=== PATIENT | female | born 1940 | race Caucasian/White ===

== ENCOUNTER 2019-04-27 17:04 | Inpatient (IN) | payer MEDICARE, OTHER ==
[~2019-04-27] VITALS: Ht 162.6 cm; Wt 47.2 kg
[2019-04-27 19:30] VITALS: BP 154/90
[2019-04-27] MEDS ORDERED: CALCIUM CARBONATE 500 MG TAB.CHEW PO PRN (22:45)
[2019-04-27] MEDS ORDERED: ACETAMINOPHEN 325 MG TABLET. PO PRN (22:45)
[2019-04-27] MEDS ORDERED: METOCLOPRAMIDE HCL 10 MG/2 ML VIAL. IV PRN (22:45)
[2019-04-27] MEDS ORDERED: cefTRIAXone IV Push 1 GM VIAL. IVP ONE (23:45)
[2019-04-27] MEDS ORDERED: ASCO500T3 PO (23:54)
[2019-04-27] MEDS ORDERED: LEVO88TA4 PO (23:54)
[2019-04-27] MEDS ORDERED: FERR325T14 PO (23:54)
[2019-04-27] MEDS ORDERED: TRAZ-118 PO (23:54)
[2019-04-27] MEDS ORDERED: OXYC1TAB15 PO (23:54)
[2019-04-27] MEDS ORDERED: CALC260T6 PO (23:54)
[2019-04-27] MEDS ORDERED: DULO30CA2 PO (23:54)
[2019-04-27] MEDS ORDERED: LORA0.5T PO (23:54)
[2019-04-27] MEDS ORDERED: TRIA1CAP3 PO (23:54)
[2019-04-27] MEDS ORDERED: ATEN25TA PO (23:54)
[2019-04-27] MEDS ORDERED: ASPI325T11 PO (23:54)
[2019-04-27 23:55] VITALS: BP 131/79
[2019-04-28] VITALS (7 sets, daily range): BP systolic 113–192; BP diastolic 67–92
[2019-04-28] MEDS: LORazepam 0.5 MG TABLET PO PRN ×2 (00:06→19:50)
[2019-04-28] MEDS: POTASSIUM CL 20MEQ D5-0.45NACL 1,000 ML IV SCH ×2 (00:07→12:43)
[2019-04-28 03:31] LABS: BASO # 0.1 x10^3/uL (0.0-0.2); BASO % 1 % (0-3); EOS # 0.1 x10^3/uL (0.0-0.7); EOS % 1 % (0-3); HEMATOCRIT 32.9 % (36.0-47.0); HEMOGLOBIN 10.7 g/dL (12.0-15.5); LYMPH # 2.4 x10^3/uL (1.0-4.8); LYMPH % 24 % (24-48); MEAN CORPUSCULAR HEMOGLOBIN 28 pg (25-35); MEAN CORPUSCULAR HGB CONC 33 g/dL (31-37); MEAN CORPUSCULAR VOLUME 86 fL (79-100); MONO # 0.9 x10^3/uL (0.0-1.1); MONO % 9 % (0-9); NEUT # 6.8 x10^3uL (1.8-7.7); NEUT % 66 % (31-73); PLATELET COUNT 277 x10^3/uL (140-400); RED BLOOD COUNT 3.83 x10^6/uL (3.50-5.40); RED CELL DISTRIBUTION WIDTH 26.4 % (11.5-14.5); WHITE BLOOD COUNT 10.3 x10^3/uL (4.0-11.0)
[2019-04-28 03:37] LABS: ALBUMIN 3.2 g/dL (3.4-5.0); ALBUMIN/GLOBULIN RATIO 0.8 (1.0-1.7); CALCIUM 9.4 mg/dL (8.5-10.1); CREATININE 0.8 mg/dL (0.6-1.0); GFR 69.4; POTASSIUM 3.4 mmol/L (3.5-5.1); TOTAL BILIRUBIN 0.4 mg/dL (0.2-1.0); TOTAL PROTEIN 7.1 g/dL (6.4-8.2)
--- NOTE | 2019-04-28 04:02 | NUR ---
Monitor reading pt had HR 180's - RN entered room and did an apical pulse check - HR in the 120's. Pt sleeping soundly during episode.While in room - brief changed - barely wet. Pt very diaphoretic - pt reports has done that for years. Two blankets removed. 2345 dose of Rocephin held as pt had received a dose at [facility] at 1519 on . Pharmacy made aware and dosing time changed. Will continue to monitor pt status closely.
[2019-04-28] MEDS: LEVOTHYROXINE 88 MCG TABLET PO SCH (06:00)
[2019-04-28] MEDS ORDERED: PANTOPRAZOLE IV PUSH 40 MG VIAL. IVP SCH (07:30)
[2019-04-28] MEDS: ATENOLOL 25 MG TABLET. PO SCH (09:00)
[2019-04-28] MEDS: ASCORBIC ACID 500 MG TABLET PO SCH (09:00)
[2019-04-28] MEDS: LACTOBACILLUS RHAMNOSUS GG 1 CAPSULE. PO SCH ×2 (09:00→19:50)
[2019-04-28] MEDS: DULoxetine HCL 30 MG CAPSULE.DR PO SCH (09:00)
--- NOTE | 2019-04-28 09:22 | PDOC2 ---
GI CONSULT Reason For Consult: GI Bleed HPI: HPI: 78 y/o female transferred from [facility] where she was initially admitted through ER at [facility] for confusion w/ medication overdose. RN tells me she "vomited black" yesterday. No recurrent vomiting or concern for bleeding since admission. Per RN, has been confused. She was less confused when I saw her this morning and able to provide some history. Has "all over pain" - says she has neuropathy and fibromyalgia. Also notes some right-sided cramping - unclear when this started. It might be worse with eating but says was eating and drinking normally until yesterday. "I don't eat much." H/o heartburn and remote h/o "ulcer." No dysphagia. No diarrhea or constipation. Unclear when last stooled but it might have looked dark. No weight loss. No previous EGD but does recall having a colonoscopy ~10 years ago. No GB, liver, or pancreas history. Admitting Hgb was 12, then 11.5, and now 10.7. Plt and INR WNL. Normal BUN and Cr. Normal LFTs and lipase. TSH elevated (10). UA +nitrites. Gastric occult was positive. Notes indicate she was taking Tums (she says not helpful for heartburn), ASA, Miralax, iron, oxycodone. Has been NPO on IV PPI. PMH: PMH: per records - osteoporosis, fibromyalgia, GERD, hypothyroidism, scoliosis, A Fib, OA, hemorrhoids, gait disorder, HTN, dementia SOLE RUFFER shunt for obstructive hydrocephalus FH: Family History: No pertinent hx Social History: Smoke: No ALCOHOL: none Drugs: None ROS: GEN: Denies fevers, chills, sweats HEENT: Denies blurred vision, sore throat CV: Denies chest pain RESP: Denies shortness of air, cough GI: Per HPI : Denies hematuria, dysuria ENDO: Denies weight changes NEURO: +confusion MSK: +chronic pain SKIN: Denies jaundice, pruritus Vitals: Vitals: Vital Signs Date Time Temp Pulse Resp B/P (MAP) Pulse Ox O2 Delivery O2 Flow Rate FiO2 04/28/19 08:47 99.4 99 18 134/71 (92) 97 Room Air 99.4 Labs: Labs: Laboratory Tests Test 04/28/19 02:50 White Blood Count 10.3 x10^3/uL (4.0-11.0) Red Blood Count 3.83 x10^6/uL (3.50-5.40) Hemoglobin 10.7 g/dL (12.0-15.5) Hematocrit 32.9 % (36.0-47.0) Mean Corpuscular Volume 86 fL (79-100) Mean Corpuscular Hemoglobin 28 pg (25-35) Mean Corpuscular Hemoglobin Concent 33 g/dL (31-37) Red Cell Distribution Width 26.4 % (11.5-14.5) Platelet Count 277 x10^3/uL (140-400) Neutrophils (%) (Auto) 66 % (31-73) Lymphocytes (%) (Auto) 24 % (24-48) Monocytes (%) (Auto) 9 % (0-9) Eosinophils (%) (Auto) 1 % (0-3) Basophils (%) (Auto) 1 % (0-3) Neutrophils # (Auto) 6.8 x10^3uL (1.8-7.7) Lymphocytes # (Auto) 2.4 x10^3/uL (1.0-4.8) Monocytes # (Auto) 0.9 x10^3/uL (0.0-1.1) Eosinophils # (Auto) 0.1 x10^3/uL (0.0-0.7) Basophils # (Auto) 0.1 x10^3/uL (0.0-0.2) Sodium Level 143 mmol/L (136-145) Potassium Level 3.4 mmol/L (3.5-5.1) Chloride Level 107 mmol/L (98-107) Carbon Dioxide Level 23 mmol/L (21-32) Anion Gap 13 (6-14) Blood Urea Nitrogen 14 mg/dL (7-20) Creatinine 0.8 mg/dL (0.6-1.0) Estimated GFR (Cockcroft-Gault) 69.4 BUN/Creatinine Ratio 18 (6-20) Glucose Level 132 mg/dL (70-99) Lactic Acid Level 1.3 mmol/L (0.4-2.0) Calcium Level 9.4 mg/dL (8.5-10.1) Total Bilirubin 0.4 mg/dL (0.2-1.0) Aspartate Amino Transf (AST/SGOT) 14 U/L (15-37) Alanine Aminotransferase (ALT/SGPT) 15 U/L (14-59) Alkaline Phosphatase 83 U/L (46-116) Total Protein 7.1 g/dL (6.4-8.2) Albumin 3.2 g/dL (3.4-5.0) Albumin/Globulin Ratio 0.8 (1.0-1.7) Lipase 96 U/L (73-393) Allergies: Coded Allergies: Sulfa (Sulfonamide Antibiotics) (Verified Allergy, Unknown, 04/27/19) ciprofloxacin (Verified Allergy, Unknown, 04/27/19) metronidazole (Verified Allergy, Unknown, 04/27/19) nalbuphine (Verified Allergy, Unknown, 04/28/19) ondansetron (Verified Allergy, Unknown, 04/28/19) tiagabine (Verified Allergy, Unknown, 04/28/19) Medications: Current Medications Medications (Trade) Dose Ordered Sig/Brijesh Route PRN Reason Start Time Stop Time Status Last Admin Dose Admin Potassium Chloride/Dextrose/ Sod Cl 1,000 ml @ 75 mls/hr [id number] IV 04/27/19 23:00 04/28/19 00:07 Lorazepam (Ativan) 0.5 mg PRN Q2HR PRN PO ANXIETY / AGITATION 04/27/19 22:45 04/28/19 00:06 Pantoprazole Sodium (PROTONIX VIAL for IV PUSH) 40 mg DAILYAC IVP 04/28/19 07:30 04/28/19 08:33 Imaging: Imaging: CT head 04/26 No acute intracranial process, mildly prominent ventricles. CT C spine No acute fractures CTA chest No PE. Large hiatal hernia. Bilateral pleural-parenchymal scarring. Vertebral compression fractures of indeterminate age. PE: GEN: NAD HEENT: Atraumatic, PERRL LUNGS: CTAB, room air HEART: tachycardic ABD: NABS, S/ND/N - flinched when right abdomen palpated with hand, no issue w/ pressed w/ stethoscope EXTREMITY: No edema SKIN: No rashes, no jaundice NEURO/PSYCH: A & O - says the year in 2019, knows it's either late March or early April, and knows she's at [facility] A/P: A/P: Confusion, medication overdose "Coffee-ground emesis," ?abd pain Anemia - drift in Hgb from 12 to 10.7, normal BUN, ?taking ASA and iron GERD, remote h/o "ulcer" CRC screen - reports previous colonoscopy Chronic pain ?UTI -- Reviewed w/ Dr. Florez - will plan for EGD later today. D/w RN - she will call son for consent. ?issue w/ shunt - neuro consult pending ROBIN-KAY SAXENA April 28, 2019 09:22
--- NOTE | 2019-04-28 12:09 | HP ---
ADMIT DATE: 04/28/2019 HISTORY OF PRESENT ILLNESS: The patient is a 78-year-old female patient, a resident at [facility], who apparently was seen in the Emergency Room of [facility] as she was very lethargic and more confused. The patient reportedly had a double dose of her Cymbalta, trazodone, Ativan, melatonin and Benadryl, after she took all these medications she has been more sedated and confused and was evaluated in the Emergency Room, where she was extensively investigated. She had lab work, which basically showed white cell count was slightly elevated at 10,800. Her chemistry was essentially unremarkable and she did actually very well the first night and then next day, she started having complaining of headache and recurrent bouts of nausea and vomiting. The vomitus was positive for blood. Her CT scan showed that she has fullness of the ventricles. She also has had spiked her temperature and white cell count went up and I was concerned that she might have blockage of her shunt and therefore the patient was transferred to [facility] to consult the neurosurgeon as well as the science analyst. Her CT scan of the head showed that she has right parietal approach intraventricular shunt is seen with its tip in the frontal horn of the left lateral ventricle. No pathology extraaxial on intraaxial fluid collection. 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 No acute intracranial bleed. No focal loss of hui-white differentiation. Orbits are within normal limits. No acute calvarial fracture and visualized sinus and mastoid air cells are clear. Given that she is having headache, recurrent bouts of nausea and vomiting and positive blood in her vomitus, we transferred her for further evaluation and treatment. She also had urinary tract infection for which she was started on ceftriaxone and the urine and blood were sent for culture and sensitivity. PAST MEDICAL HISTORY: Significant for osteoporosis, fibromyalgia, gastroesophageal reflux disease, hypothyroidism, scoliosis, atrial fibrillation, generalized osteoarthritis, and hemorrhoids. PAST SURGICAL HISTORY: Significant for placement of ventriculoperitoneal shunt for what seemed to have obstructive hydrocephalus, although I do not have the details as she moved from [place] and resided at [facility]. ALLERGIES: She is allergic to CIPROFLOXACIN, FLAGYL, GABITRIL, NUBAIN, SULFA AND ZOFRAN. FAMILY HISTORY: Noncontributory. SOCIAL HISTORY: She is , currently residing at [facility]. She does not smoke, drink alcohol or use any recreational drugs. REVIEW OF SYSTEMS: As per history of present illness. MEDICATIONS: She is on following medications: She was transferred from [facility] to continue on following medications: She is on ferrous sulfate 325 mg once a day, atenolol 25 mg once a day, aspirin 325 mg once a day, oxycodone/APAP 5/325 every 6 hours. She is on Cymbalta 30 mg once a day, trazodone 50 mg at bedtime, lorazepam 0.5 mg every 2 hours as needed for anxiety. She is on triamterene/hydrochlorothiazide one tablet daily. She is on calcium carbonate 260 mg 4 times a day, levothyroxine sodium 88 mcg once a day, ascorbic acid 500 mg twice a day. We kept her n.p.o., she should be on IV fluid in the form of D5 half normal with potassium. She is on IV Rocephin as well as Protonix IV because of recurrent bouts of nausea, vomiting and positive blood in her vomitus. When I saw her this morning, she denied any headaches, continued to have some nausea, but no vomiting. Did complain of some epigastric discomfort. The nursing staff stated that she has a black tarry stool this morning. PHYSICAL EXAMINATION: GENERAL: When I examined her, she looked pale, but no jaundice, cyanosis, or thyromegaly. No jugular venous distension. No limb edema. VITAL SIGNS: Her heart rate was 99, blood pressure 134/71, temperature was 99.4, respiratory rate was 18 and oxygen saturation was 97%. HEAD, EYES, NOSE, AND THROAT: Normocephalic, atraumatic. NECK: Supple. HEART: Showed normal first and second heart sounds with no gallop, rub or murmur. CHEST: Clear to auscultation. No crepitation or rhonchi. ABDOMEN: Slightly distended, soft with tenderness mostly in the epigastric area. No guarding or rigidity. No organomegaly. All hernial orifices intact. Bowel sounds normal. NEUROLOGIC: She is confused, demented, but without any obvious lateralizing sign. All her cranial nerves intact. EXTREMITIES: She moves extremities without difficulty, she ambulates. She was mostly bedbound, chair bound; however, she does walk with a walker with assistance. LABORATORY DATA: Her lab work this morning showed her white cell count to be 10,300, hemoglobin 11, hematocrit 33, MCV was 86 and platelet count 277,000. Her chemistry showed a serum sodium 143, potassium 3.4, chloride 107, bicarbonate 23, anion gap of 13, BUN 14, creatinine 0.8, estimated GFR was 69 mL per minute. Her glucose was 132. Lactic acid is 1.3, calcium was 9.4. Total bilirubin, AST, ALT, alkaline phosphatase were normal. Total protein was 7.1, albumin was 3.2. Lipase was 96. IMPRESSION: 1. In summary, this is a 78-year-old female patient who was transferred from [facility] with a complaint of headache and recurrent bouts of nausea and vomiting. Her CT scan of the head showed that her ventricles are somewhat prominent. She has a ventriculoperitoneal shunt for obstructive hydrocephalus. 2. She has had multiple episodes of nausea and vomiting. The vomitus was positive for blood and in fact she had also a black stool this morning here at [facility] for which we consulted the Gastroenterology team. She is n.p.o. She is on IV fluid and also will start her on Protonix. 3. Urinary tract infection for which she is on IV Rocephin. 4. She has multiple Episodes of nonsustained supraventricular tachycardia for which I will consult the instructor warper also. She does have a history of paroxysmal atrial fibrillation, but she is not on anticoagulation. PAU COSTELLO MD DR: BURKE/maxine JOB#: [id number] / [id number]
--- NOTE | 2019-04-28 13:39 | PDOC2 ---
CARDIAC CONSULT DATE OF CONSULT Date of Consult DATE: 04/28/19 TIME: 13:28 REASON FOR CONSULT Reason for Consult: Tachycardia SVT REFERRING PHYSICIAN Referring Physician: Dr. Nixon SOURCE Source: Chart review, Patient HISTORY OF PRESENT ILLNESS HISTORY OF PRESENT ILLNESS This is a 78 yo female who presented to [facility] from [facility] secondary to altered mental status and lethargy secondary to medication overdose. While at [facility], began having headache and nausea/vomiting. Had coffee ground emesis. Was transferred to [facility] for further evaluation and care. HR has been elevated here intermittently, which prompted this consult. Patient denies any palpitations, dizziness, diaphoresis, SOA, or chest pain. Does have history of PAFIB s/p cardioversion years ago. On Atenolol at home for HR control. Has been unable to received due to being NPO. Is having bursts of AFIB with RVR. Recently moved to [facility] from [place], [place]. Has been on ASA for stroke prevention due to multiple falls in the past. Had fall 2 weeks ago at [place]. PAST MEDICAL HISTORY Cardiovascular: AFIB GI: GERD Psych: Anxiety, Depression Musculoskeletal: Osteoarthritis Rheumatologic: Fibromyalgia Renal/: No pertinent hx Endocrine: Hypothyroidism, Osteoporosis PAST SURGICAL HISTORY Past Surgical History: Hysterectomy FAMILY HISTORY Family History: Other (non-contributory ) SOCIAL HISTORY Smoke: No ALCOHOL: none Drugs: None Lives: Care Home CURRENT MEDICATIONS CURRENT MEDICATIONS Current Medications Medications (Trade) Dose Ordered Sig/Brijesh Route PRN Reason Start Time Stop Time Status Last Admin Dose Admin Potassium Chloride/Dextrose/ Sod Cl 1,000 ml @ 75 mls/hr [id number] IV 04/27/19 23:00 04/28/19 12:43 Lorazepam (Ativan) 0.5 mg PRN Q2HR PRN PO ANXIETY / AGITATION 04/27/19 22:45 04/28/19 00:06 Pantoprazole Sodium (PROTONIX VIAL for IV PUSH) 40 mg DAILYAC IVP 04/28/19 07:30 04/28/19 08:33 ALLERGIES ALLERGIES: Coded Allergies: Sulfa (Sulfonamide Antibiotics) (Verified Allergy, Unknown, 04/27/19) ciprofloxacin (Verified Allergy, Unknown, 04/27/19) metronidazole (Verified Allergy, Unknown, 04/27/19) nalbuphine (Verified Allergy, Unknown, 04/28/19) ondansetron (Verified Allergy, Unknown, 04/28/19) tiagabine (Verified Allergy, Unknown, 04/28/19) ROS Review of System 14 point ROS conducted with pertinent positives noted above in HPI PHYSICAL EXAM General: Alert, Oriented X3, Cooperative, No acute distress HEENT: Atraumatic Lungs: Clear to auscultation, Normal air movement Heart: Regular rate, Normal S1, Normal S2, Other (2/6 systolic murmur ) Abdomen: Soft, No tenderness Extremities: No edema, Normal pulses Skin: No breakdown, No significant lesion Neuro: Normal speech, Sensation intact Psych/Mental Status: Mental status NL, Mood NL MUSCULOSKELETAL: Osteoarthritic changes both hands VITALS VITALS Vital Signs Date Time Temp Pulse Resp B/P (MAP) Pulse Ox O2 Delivery O2 Flow Rate FiO2 04/28/19 11:27 99.1 98 18 124/67 (86) 97 Room Air 99.1 LABS Lab: Laboratory Tests Test 04/28/19 02:50 White Blood Count 10.3 x10^3/uL (4.0-11.0) Red Blood Count 3.83 x10^6/uL (3.50-5.40) Hemoglobin 10.7 g/dL (12.0-15.5) Hematocrit 32.9 % (36.0-47.0) Mean Corpuscular Volume 86 fL (79-100) Mean Corpuscular Hemoglobin 28 pg (25-35) Mean Corpuscular Hemoglobin Concent 33 g/dL (31-37) Red Cell Distribution Width 26.4 % (11.5-14.5) Platelet Count 277 x10^3/uL (140-400) Neutrophils (%) (Auto) 66 % (31-73) Lymphocytes (%) (Auto) 24 % (24-48) Monocytes (%) (Auto) 9 % (0-9) Eosinophils (%) (Auto) 1 % (0-3) Basophils (%) (Auto) 1 % (0-3) Neutrophils # (Auto) 6.8 x10^3uL (1.8-7.7) Lymphocytes # (Auto) 2.4 x10^3/uL (1.0-4.8) Monocytes # (Auto) 0.9 x10^3/uL (0.0-1.1) Eosinophils # (Auto) 0.1 x10^3/uL (0.0-0.7) Basophils # (Auto) 0.1 x10^3/uL (0.0-0.2) Sodium Level 143 mmol/L (136-145) Potassium Level 3.4 mmol/L (3.5-5.1) Chloride Level 107 mmol/L (98-107) Carbon Dioxide Level 23 mmol/L (21-32) Anion Gap 13 (6-14) Blood Urea Nitrogen 14 mg/dL (7-20) Creatinine 0.8 mg/dL (0.6-1.0) Estimated GFR (Cockcroft-Gault) 69.4 BUN/Creatinine Ratio 18 (6-20) Glucose Level 132 mg/dL (70-99) Lactic Acid Level 1.3 mmol/L (0.4-2.0) Calcium Level 9.4 mg/dL (8.5-10.1) Total Bilirubin 0.4 mg/dL (0.2-1.0) Aspartate Amino Transf (AST/SGOT) 14 U/L (15-37) Alanine Aminotransferase (ALT/SGPT) 15 U/L (14-59) Alkaline Phosphatase 83 U/L (46-116) Total Protein 7.1 g/dL (6.4-8.2) Albumin 3.2 g/dL (3.4-5.0) Albumin/Globulin Ratio 0.8 (1.0-1.7) Lipase 96 U/L (73-393) ASSESSMENT/PLAN ASSESSMENT/PLAN 1. Tachyarrhythmia; having burst of AFIB RVR. Atenolol held due to being NPO 2. PAFIB; s/p remote CV. On ASA for stroke prevention due to increased fall risk 3. Hypertension; controlled 4. Coffee ground emesis; GI following. EGD planned for later today 5. Anemia; hgb drop from 12 to 10.7. 6. Chronic pain, fibromyalgia 7. Hypokalemia; replaced 8. Hypothyroidism; TSH > 10; as per PCP Recommendations Atenolol held as patient is NPO Will use metoprolol IV while NPO Echo to assess LV systolic function May hold ASA if GI bleeding noted. Supportive care DEE DEE DAO APRN April 28, 2019 13:39
[2019-04-28] MEDS: METOPROLOL TARTRATE 5 MG/5 ML VIAL. IVP SCH ×3 (14:00→19:51)
--- NOTE | 2019-04-28 14:29 | NUR ---
SW following for discharge planning. ARIE confirmed with Vianey at [facility], pt is LTC resident and plan of return upon dc. Will continue to follow.
[2019-04-28] MEDS: IV RINGERS,LACTATED 1000ML 1,000 ML IV SCH (16:04)
--- NOTE | 2019-04-28 16:10 | CARD ---
MR#: [id number] Date of Study: 04/28/2019 Ordering Physician: DEE DEE DAO, Referring Physician: PAU COSTELLO Tech: Ruby Iqbal RDCS APPROVED REPORT EXAM: Two-dimensional and M-mode echocardiogram with Doppler and color Doppler. Other Information Quality : Good Technically limited study due to due to patient refusal to finish study INDICATION Chest Pain 2D DIMENSIONS RVDd2.6 (2.9-3.5cm)Left Atrium(2D)3.2 (1.6-4.0cm) IVSd0.9 (0.7-1.1cm)Aortic Root(2D)2.8 (2.0-3.7cm) LVDd3.3 (3.9-5.9cm)LVOT Diameter2.0 (1.8-2.4cm) PWd1.0 (0.7-1.1cm)LVDs1.8 (2.5-4.0cm) FS (%) 30.0 %SV33.9 ml LVEF(%)60.0 (>50%) Tricuspid Valve TR P. [id number] TR Peak [id number] LEFT VENTRICLE The left ventricle is normal size. There is normal left ventricular wall thickness. The left ventricu lar systolic function is normal and the ejection fraction is within normal range. The Ejection Fracti on is 60-65%. There is normal LV segmental wall motion. RIGHT VENTRICLE The right ventricle is normal size. The right ventricular systolic function is normal. ATRIA The left atrium size is normal. The right atrium size is normal. AORTIC VALVE The aortic valve is calcified but opens well. Doppler and Color Flow revealed no significant aortic r egurgitation. There is no significant aortic valvular stenosis. MITRAL VALVE The mitral valve is calcified but opens well. There is no evidence of mitral valve prolapse. There is no mitral valve stenosis. Doppler and Color Flow revealed no mitral valve regurgitation noted. TRICUSPID VALVE The tricuspid valve is normal in structure and function. Doppler and Color Flow revealed trace tricus pid regurgitation. The PA pressure was estimated at 28 mmHg. There is no tricuspid valve stenosis. PULMONIC VALVE The pulmonic valve is not well visualized. Doppler and Color Flow revealed no pulmonic valvular regur gitation. There is no pulmonic valvular stenosis. GREAT VESSELS The aortic root is normal in size. The ascending aorta is not well seen. The IVC was not visualized. PERICARDIAL EFFUSION There is no evidence of significant pericardial effusion. Critical Notification Critical Value: No <Conclusion> The left ventricular systolic function is normal and the ejection fraction is within normal range. Th e Ejection Fraction is 60-65%. There is normal LV segmental wall motion. Limited study only Signed by : Enrique Duron, Electronically Approved : 04/28/2019 16:09:55
[2019-04-28] MEDS ORDERED: PROPOFOL 20 ML IV ONE (17:23)
--- NOTE | 2019-04-28 17:47 | PDOC4 ---
PROCEDURE Procedure EGD Indication: hematemesis/acute anemia Meds: per anesthesia Findings: E--Grade A/B reflux distally with friability, tiny M-W tear. G--large HH w/o obstruction, torsion, etc. D--Normal to second portion. Kavita. well. 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 REC: Continue PPI in some fashion OK to have liquids and advance in AM. Thanks. GIANCARLO HENSLEY MD April 28, 2019 17:47
[2019-04-28] MEDS: cefTRIAXone IV Push 1 GM VIAL. IVP SCH (18:33)
--- NOTE | 2019-04-28 19:16 | NUR ---
Patient underwent EGD this afternoon, consent provided by patient's son over the phone witnessed by 2 nurses. The patient came back to the unit at 1810, alert, oriented x2, denies pain. VS upon arrival 117/64 HR 98 RR 18 O2 sat 94% on room air. We'll continue to monitor.
[2019-04-28] MEDS: traZODone 50 MG TABLET. PO SCH (19:50)
[2019-04-29 00:03] VITALS: BP 138/69
[2019-04-29] MEDS: IV RINGERS,LACTATED 1000ML 1,000 ML IV SCH ×2 (02:15→12:15)
[2019-04-29 03:57] VITALS: BP 136/66
[2019-04-29] MEDS: POTASSIUM CL 20MEQ D5-0.45NACL 1,000 ML IV SCH (05:23)
[2019-04-29] MEDS: METOPROLOL TARTRATE 5 MG/5 ML VIAL. IVP SCH ×4 (05:34→23:45)
[2019-04-29] MEDS: LEVOTHYROXINE 88 MCG TABLET PO SCH (05:49)
[2019-04-29 07:00] VITALS: BP 156/70
[2019-04-29] MEDS: PANTOPRAZOLE 40 MG TABLET.DR. PO SCH ×2 (08:42→13:38)
[2019-04-29] MEDS: LACTOBACILLUS RHAMNOSUS GG 1 CAPSULE. PO SCH ×3 (08:42→20:54)
[2019-04-29] MEDS: fentaNYL PF VIAL 100 MCG/2 ML VIAL IV PRN (08:42)
[2019-04-29] MEDS: ASCORBIC ACID 500 MG TABLET PO SCH ×2 (08:43→13:38)
[2019-04-29] MEDS: ATENOLOL 25 MG TABLET. PO SCH ×2 (08:43→09:00)
[2019-04-29] MEDS ORDERED: IOHEXOL 300 MG/ML 100ML VIAL. IV ONE (09:00)
[2019-04-29] MEDS: DULoxetine HCL 30 MG CAPSULE.DR PO SCH (09:00)
[2019-04-29] MEDS ORDERED: IOHEXOL 240 MG/ML 50ML VIAL. PO ONE (09:00)
[2019-04-29] MEDS ORDERED: CONTRAST GIVEN. MC PRN (09:00)
--- NOTE | 2019-04-29 09:11 | NUR ---
IP: Pt is mrsa screen + requiring contact precautions.
--- NOTE | 2019-04-29 10:04 | NUR ---
ARIE faxed updates to [facility]. Will continue to follow.
[2019-04-29 10:11] LABS: BASO % 1 % (0-3); EOS # 0.3 x10^3/uL (0.0-0.7); EOS % 4 % (0-3); HEMATOCRIT 32.7 % (36.0-47.0); HEMOGLOBIN 10.5 g/dL (12.0-15.5); LYMPH # 1.3 x10^3/uL (1.0-4.8); LYMPH % 22 % (24-48); MEAN CORPUSCULAR HEMOGLOBIN 28 pg (25-35); MEAN CORPUSCULAR HGB CONC 32 g/dL (31-37); MEAN CORPUSCULAR VOLUME 87 fL (79-100); MONO # 0.5 x10^3/uL (0.0-1.1); MONO % 8 % (0-9); NEUT # 3.7 x10^3uL (1.8-7.7); NEUT % 65 % (31-73); PLATELET COUNT 240 x10^3/uL (140-400); RED BLOOD COUNT 3.75 x10^6/uL (3.50-5.40); RED CELL DISTRIBUTION WIDTH 25.5 % (11.5-14.5); WHITE BLOOD COUNT 5.7 x10^3/uL (4.0-11.0)
[2019-04-29 10:12] LABS: POTASSIUM 3.5 mmol/L (3.5-5.1)
[2019-04-29 10:19] LABS: ALBUMIN/GLOBULIN RATIO 0.8 (1.0-1.7); TOTAL BILIRUBIN 0.3 mg/dL (0.2-1.0); TOTAL PROTEIN 6.6 g/dL (6.4-8.2)
[2019-04-29 10:21] LABS: CREATININE 0.6 mg/dL (0.6-1.0); GFR 96.7
--- NOTE | 2019-04-29 11:32 | RAD ---
CT of the abdomen and pelvis with contrast, 04/29/2019: HISTORY: Abdominal pain Multidetector CT imaging was performed following oral and IV administration of contrast. A FIELD ATTENDANT shunt tube extends into the upper abdomen. Its tip lies adjacent to the gallbladder. No dense gallstones or gallbladder wall thickening is evident. No hepatic abnormality is seen. The pancreas is unremarkable. The spleen is of normal size. No renal abnormality is detected. There is moderate aortic calcific plaquing without evidence of aneurysm. Artifacts arising from a left hip prosthesis degrade image quality in the lower pelvis. No abdominal or pelvic adenopathy is seen. The uterus is surgically absent. The bowel loops are not dilated. A large hiatal hernia is present. No free air or significant free fluid is identified in the abdomen or pelvis. Several old rib fractures are present on the lower left. There are vertebral compression fractures at L1 and L2, of indeterminate ages. There is mild retropulsion of the posterior superior corner of the L1 vertebral body into the anterior aspect of the spinal canal. There is a small fat-containing midline ventral hernia located just superior to the level the umbilicus. IMPRESSION: 1. A FIELD ATTENDANT shunt tube is identified with its inferior tip lying adjacent to the gallbladder. 2. Small fat-containing ventral hernia. 3.. Large hiatal hernia. 4. L1 and L2 vertebral compression fractures of indeterminate ages. PQRS Compliance Statement: One or more of the following individualized dose reduction techniques were utilized for this examination: 1. Automated exposure control 2. Adjustment of the mA and/or kV according to patient size 3. Use of iterative reconstruction technique Electronically signed by: Morgan Hernandez MD (04/29/2019 11:29 AM) [facility]
--- NOTE | 2019-04-29 11:51 | NUR ---
Notified Dr. Nixon of Abdominal/pelvic CT scan results at 1150, order to advance diet received.
[2019-04-29 12:47] LABS: ANISOCYTOSIS MOD; HYPOCHROMIA SLIGHT; PLT ESTIMATE ADEQUATE (ADEQUATE)
--- NOTE | 2019-04-29 13:14 | PDOC ---
Subjective: Subjective: "I vomited all over my neck during the CT scan! No one talks to me!" Wonders if her soup is potato or onion - she thinks she's going to finish it either way. Wants me to stay and talk awhile because "I'm a hard one to figure out." Objective: Objective: Reviewed w/ RN - was c/o right-sided pain earlier and Dr. Nixon ordered a CT - she did NOT vomit during CT. She discussed with her son - sometimes she makes things up. Vital Signs: Vital Signs Date Time Temp Pulse Resp B/P (MAP) Pulse Ox O2 Delivery O2 Flow Rate FiO2 04/29/19 08:43 82 156/70 04/29/19 08:42 19 98 Room Air 04/29/19 07:00 97.9 97.9 04/28/19 17:56 2 Labs: Laboratory Tests Test 04/29/19 06:00 04/29/19 09:25 Free Thyroxine 0.90 ng/dL White Blood Count 5.7 x10^3/uL Red Blood Count 3.75 x10^6/uL Hemoglobin 10.5 g/dL Hematocrit 32.7 % Mean Corpuscular Volume 87 fL Mean Corpuscular Hemoglobin 28 pg Mean Corpuscular Hemoglobin Concent 32 g/dL Red Cell Distribution Width 25.5 % Platelet Count 240 x10^3/uL Neutrophils (%) (Auto) 65 % Lymphocytes (%) (Auto) 22 % Monocytes (%) (Auto) 8 % Eosinophils (%) (Auto) 4 % Basophils (%) (Auto) 1 % Neutrophils # (Auto) 3.7 x10^3uL Lymphocytes # (Auto) 1.3 x10^3/uL Monocytes # (Auto) 0.5 x10^3/uL Eosinophils # (Auto) 0.3 x10^3/uL Basophils # (Auto) 0.0 x10^3/uL Platelet Estimate Adequate Hypochromasia Slight Anisocytosis Mod Sodium Level 142 mmol/L Potassium Level 3.5 mmol/L Chloride Level 108 mmol/L Carbon Dioxide Level 25 mmol/L Anion Gap 9 Blood Urea Nitrogen 6 mg/dL Creatinine 0.6 mg/dL Estimated GFR (Cockcroft-Gault) 96.7 BUN/Creatinine Ratio 10 Glucose Level 118 mg/dL Calcium Level 9.0 mg/dL Magnesium Level 1.8 mg/dL Total Bilirubin 0.3 mg/dL Aspartate Amino Transf (AST/SGOT) 12 U/L Alanine Aminotransferase (ALT/SGPT) 12 U/L Alkaline Phosphatase 74 U/L Lactate Dehydrogenase 134 U/L Total Protein 6.6 g/dL Albumin 3.0 g/dL Albumin/Globulin Ratio 0.8 Lipase 102 U/L Imaging: CT A/P 04/29 IMPRESSION: 1. A POWER BRAKE REBUILDER shunt tube is identified with its inferior tip lying adjacent to the gallbladder. 2. Small fat-containing ventral hernia. 3.. Large hiatal hernia. 4. L1 and L2 vertebral compression fractures of indeterminate ages. EGD 04/28 E--Grade A/B reflux distally with friability, tiny M-W tear. G--large HH w/o obstruction, torsion, etc. D--Normal to second portion. 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 Echo 04/28 <Conclusion> The left ventricular systolic function is normal and the ejection fraction is within normal range. The Ejection Fraction is 60-65%. There is normal LV segmental wall motion. Limited study only PE: GEN: NAD, eating soup with enthusiasm LUNGS: CTAB HEART: RRR ABD: NABS, S/ND - was not tender during my exam NEURO/PSYCH: confused A/P: "Coffee-ground emesis" - no recurrence, EGD as above w/ large HH and tiny M-W tear ?abd pain - CT unrevealing Confusion/dementia -- Can advance diet. KAY CORTES April 29, 2019 13:14
[2019-04-29 13:18] LABS: THYROXINE 5.9 ug/dL (4.5-12.0)
[2019-04-29 15:00] VITALS: BP 125/72
[2019-04-29] MEDS: cefTRIAXone IV Push 1 GM VIAL. IVP SCH (15:56)
[2019-04-29 19:15] VITALS: BP 115/61
[2019-04-29] MEDS: CEFDINIR 300 MG CAPSULE PO SCH (20:54)
[2019-04-29] MEDS: traZODone 50 MG TABLET. PO SCH (20:54)
[2019-04-29 23:45] VITALS: BP 113/50
[2019-04-30 03:43] VITALS: BP 143/69
--- NOTE | 2019-04-30 05:35 | PN ---
DATE: 04/29/2019 SUBJECTIVE: The patient is resting slightly propped up in bed, continued to complain of abdominal pain, mostly in the right upper quadrant. She also has diffuse tenderness. She has had no more nausea, no vomiting. Her headache has largely subsided. She apparently has had esophagogastroduodenoscopy and had grade A-B reflux distally with friability, I think patient has tiny Paulette-Valero tear. She was also found to have a large hiatus hernia without obstruction or torsion, the duodenum was normal to second portion. 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 PHYSICAL EXAMINATION: GENERAL: When I saw her this morning, the patient was resting slightly propped up in bed, in no apparent respiratory distress, pale, but no jaundice, cyanosis or thyromegaly. No jugular venous distension. No limb edema. VITAL SIGNS: Her heart rate was 82, blood pressure 156/70, temperature was 97.9, respiratory rate was 17 and oxygen saturation was 98%. HEAD, EYES, EARS, NOSE AND THROAT: Normocephalic, atraumatic. NECK: Supple. HEART: Showed normal first and second heart sounds. No gallop or murmur. CHEST: Clear to auscultation. No crepitation or rhonchi. ABDOMEN: Distended with diffuse tenderness, with marked tenderness mostly in the right upper quadrant. NEUROLOGIC: She is somewhat demented, but without any obvious lateralizing sign. Her intake was incompletely recorded. LABORATORY DATA: She has no lab work done this morning. ASSESSMENT: 1. This is a 78-year-old female patient who was transferred from [facility] on account of complaining headache, recurrent bouts of nausea and vomiting. Her CT scan of the head showed that her ventricles are somewhat prominent. She has ventriculoperitoneal shunt for obstructive hydrocephalus. 2. She has multiple episodes of nausea and vomiting. The vomitus was positive for blood. In fact, she has also black stool this morning here at [facility]. 3. She has urinary tract infection for which she is on IV Rocephin. 4. She has multiple episodes of nonsustained supraventricular tachycardia for which I did consult the sample hand and apparently she was n.p.o. and was not getting her atenolol and was started on IV metoprolol. PLAN: My plan is to continue with care, to keep her n.p.o. I will repeat her lab work and arrange for a CT scan of the abdomen and pelvis with IV and oral contrast. PAU COSTELLO MD DR: BURKE/maxine JOB#: [id number] / [id number]
[2019-04-30] MEDS: LEVOTHYROXINE 88 MCG TABLET PO SCH (05:36)
[2019-04-30] MEDS: METOPROLOL TARTRATE 5 MG/5 ML VIAL. IVP SCH ×2 (05:36→12:00)
[2019-04-30 07:00] VITALS: BP 140/59
[2019-04-30] MEDS: LACTOBACILLUS RHAMNOSUS GG 1 CAPSULE. PO SCH (09:25)
[2019-04-30] MEDS: CEFDINIR 300 MG CAPSULE PO SCH (09:25)
[2019-04-30] MEDS: ATENOLOL 25 MG TABLET. PO SCH (09:25)
[2019-04-30] MEDS: DULoxetine HCL 30 MG CAPSULE.DR PO SCH (09:25)
[2019-04-30] MEDS: PANTOPRAZOLE 40 MG TABLET.DR. PO SCH (09:25)
[2019-04-30] MEDS: ASCORBIC ACID 500 MG TABLET PO SCH (09:26)
[2019-04-30 11:00] VITALS: BP 113/66
[2019-04-30] MEDS: fentaNYL PF VIAL 100 MCG/2 ML VIAL IV PRN (12:40)
[2019-04-30] MEDS ORDERED: PANT20TA2 PO (14:13)
[2019-04-30] MEDS ORDERED: CEFD300C PO (14:13)
--- NOTE | 2019-04-30 14:15 | SNU/HH DC ---
DISCHARGE ORDERS DISCHARGE INFORMATION: DISCHARGE DATE: Apr 30, 2019 FINAL DIAGNOSIS UTI RECURRENT BOUTS OF NAUSEA AND VOMITING Paulette maldonado syndrome Afib with RVR CONDITION ON DISCHARGE: Stable CODE STATUS: Code Status: Full GROUP HOME: SNF STAY <30 DAYS: No POST DISCHARGE ORDERS: ACTIVITY ORDERS: Resume previous activity DIET AFTER DISCHARGE: Regular TREATMENT/EQUIPMENT ORDERS: ADAPTIVE EQUIPMENT NEEDED: Wheelchair Physical Therapy For: Evalulation/Treatment Occupational Therapy For: Evaluation/Treatment DISCHARGE MEDICATIONS: Home Meds Active Scripts Pantoprazole Sodium (PROTONIX) 20 Mg Tablet., 2 TAB PO DAILY for gerd for 30 Days, #60 TAB Prov:PAU COSTELLO MD 04/30/19 Cefdinir (CEFDINIR) 300 Mg Capsule, 1 CAP PO BID for uti for 5 Days, #10 CAP Prov:PAU COSTELLO MD 04/30/19 Reported Medications Aspirin (ASPIRIN EC) 325 Mg Tablet., 325 MG PO DAILY for heart healthy, TAB.SR 04/27/19 Triamterene/Hydrochlorothiazid (TRIAMTERENE-HCTZ 37.5-25 MG CP) 1 Each Capsule, 1 CAP PO DAILY for hypertension, #90 CAP 1 Refill 04/27/19 Trazodone Hcl (TRAZODONE HCL) 50 Mg Tablet, 50 MG PO QHS for insomnia, TAB 04/27/19 Oxycodone/Apap 5-325 (PERCOCET 5-325 MG TABLET ) 1 Each Tablet, 1 TAB PO PRN Q6HRS PRN for PAIN, TAB 0 Refills 04/27/19 Lorazepam (LORAZEPAM) 0.5 Mg Tablet, 0.5 MG PO Q2HR for anxiety, TAB 04/27/19 Levothyroxine Sodium (LEVOTHYROXINE SODIUM) 88 Mcg Tablet, 88 MCG PO DAILYAC for THYROID SUPPLEMENT, #30 TAB 0 Refills 04/27/19 Ferrous Sulfate (FERROUS SULFATE) 325 Mg Tablet, 325 MG PO BID for anemia, TAB 04/27/19 Duloxetine Hcl (CYMBALTA) 30 Mg Capsule.dr, 30 MG PO DAILY for depression, CAP 04/27/19 Calcium Carbonate (Calcium Carbonate) 260 Mg Tablet, 260 MG PO QID for indigestion, TAB 04/27/19 Atenolol (ATENOLOL) 25 Mg Tablet, 25 MG PO DAILY for hypertension, TAB 04/27/19 Ascorbic Acid (ASCORBIC ACID) 500 Mg Tablet, 500 MG PO BID for replacement, TAB 04/27/19 PAU COSTELLO MD Apr 30, 2019 14:15
[2019-04-30 15:00] VITALS: BP 118/66
--- NOTE | 2019-04-30 18:08 | NUR ---
pt transfered back to [facility]. pt's son was willing to drive pt back to [facility]. walked/wheeled out pt to the main entrance to personal vehicle. gave packet to son to take with pt to facility, called report to Eva at [facility]. Dillon Hess RN
--- NOTE | 2019-05-01 05:18 | DS ---
DATE OF DISCHARGE: 04/30/2019 HOSPITAL COURSE: The patient is a 78-year-old female patient, a resident at [facility], who was initially brought to the Emergency Room of [facility] with altered mental status. She reportedly had a double dose of her Cymbalta, trazodone, Ativan, melatonin and Benadryl. After she took all this medication, she became more sedated, confused and was evaluated in the Emergency Room where she was found to have urinary tract infection. She did spike her temperature, white cell count went up and therefore, the patient was transferred to [facility] where she was evaluated by the roll slicing machine tender. I continued her ceftriaxone and her white cell count and temperature had resolved, has had no more headache. Her nausea and vomiting has subsided. 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 She had no more episode of headache, no nausea, no vomiting. She was afebrile. Her white cell count was normal, was tolerating her food without any problem and therefore, decision was made to discharge her back to [facility]. PHYSICAL EXAMINATION: GENERAL: When I examined her, she looked well this afternoon, no apparent distress, slightly pale, but no jaundice, cyanosis, or thyromegaly. No jugular venous distention. No lower limb edema. VITAL SIGNS: Her heart rate was 93, blood pressure was 113/66, temperature was 97.5, respiratory rate was 16, and oxygen saturation was 99% on 2 liters of oxygen by nasal cannula. HEAD, EYES, EARS, NOSE AND THROAT: Showed normocephalic, atraumatic. NECK: Supple. HEART: Normal first and second heart sounds. No gallop, rub or murmur. CHEST: Clear to auscultation. No crepitation or rhonchi. ABDOMEN: Slightly distended, soft, nontender. NEUROLOGIC: She is confused, but without any obvious lateralizing sign. All her cranial nerves are intact. She moves extremities without difficulty. LABORATORY DATA: Showed her white cell count is down to 5700, hemoglobin 10.5, hematocrit 33, MCV 87, and platelet count 240,000. Her chemistry showed serum sodium 142, potassium 3.7, chloride 108, bicarbonate 25, anion gap of 9, BUN 6, creatinine 0.6, estimated GFR was 96 mL per minute. Her glucose was 118. Calcium was 9. Total bilirubin, AST, ALT, alkaline phosphatase were normal. Her LDH was 134. Total protein was 6.6, albumin was 3. Her TSH was slightly elevated; however, her free T4 was 0.9, total T4 was 5.9 and total T3 was 68. Her nasal screen for MRSA by PCR was positive. She was discharged back to [facility] to continue on following medications: Cefdinir 300 mg twice a day for 5 more days, Protonix 40 mg daily, ascorbic acid 500 mg twice a day, aspirin 325 mg once a day, atenolol 25 mg daily, calcium carbonate 260 mg p.o. q.i.d., duloxetine for Cymbalta 30 mg daily, ferrous sulfate 325 mg twice a day, levothyroxine 88 mcg daily, lorazepam 0.5 mg every 2 hours for anxiety, oxycodone/APAP 5/325 one tablet every 6 hours, trazodone 50 mg at bedtime and triamterene/hydrochlorothiazide 37.5/25 one tablet once a day. FINAL DISCHARGE DIAGNOSES: 1. Headache, recurrent bouts of nausea and vomiting, resolved. 2. Vomitus was positive for blood and the patient underwent upper GI endoscopy, which showed that she has Paulette-Valero tear. 3. Urinary tract infection for which she is on IV Rocephin. 4. She has multiple episodes of nonsustained supraventricular tachycardia, has subsided once she was back on her oral atenolol. 5. Other medical problems include osteoporosis, fibromyalgia, gastroesophageal reflux disease, generalized osteoarthritis and hemorrhoids. PAU COSTELLO MD DR: BURKE/maxine JOB#: [id number] / [id number]
== END 2019-04-30 18:11 | DRG 369 ==
LOC: 6 SOUTH 19:30
PROVIDERS: ADMIT Internal Medicine; ATTEND Internal Medicine
PROC: 0DJ08ZZ Inspection of Upper Intestinal Tract, Via Natural or Artificial Opening Endoscopic (ICD-10-PCS; principal; 2019-04-28 16:30)
DX: K22.6 Gastro-esophageal laceration-hemorrhage syndrome (principal); N39.0 Urinary tract infection, site not specified; I47.1 Supraventricular tachycardia; D64.9 Anemia, unspecified; E03.9 Hypothyroidism, unspecified; E87.6 Hypokalemia; F03.90 Unspecified dementia, unspecified severity, without behavioral disturbance, psychotic disturbance, mood disturbance, and anxiety; G62.9 Polyneuropathy, unspecified; G89.4 Chronic pain syndrome; I10 Essential (primary) hypertension; K21.0 Gastro-esophageal reflux disease with esophagitis; I48.0 Paroxysmal atrial fibrillation; F32.9 Major depressive disorder, single episode, unspecified; F41.9 Anxiety disorder, unspecified; K43.9 Ventral hernia without obstruction or gangrene; K44.9 Diaphragmatic hernia without obstruction or gangrene; M15.9 Polyosteoarthritis, unspecified; M41.9 Scoliosis, unspecified; M81.0 Age-related osteoporosis without current pathological fracture; M79.7 Fibromyalgia; Z86.73 Personal history of transient ischemic attack (TIA), and cerebral infarction without residual deficits; Z91.81 History of falling; Z98.2 Presence of cerebrospinal fluid drainage device; Z90.710 Acquired absence of both cervix and uterus; Z88.2 Allergy status to sulfonamides; Z88.8 Allergy status to other drugs, medicaments and biological substances
CPT/HCPCS: 36415; 43235; 74177; 80053; 83605; 83615; 83690; 83735; 84436; 84439; 84480; 85025; 87641; 93306; C9113; J0696; J2704; J3010; J3490; J7120

== ENCOUNTER 2022-04-16 02:37 | Emergency (ER) | payer MEDICARE, OTHER ==
[~2022-04-16] VITALS: Ht 160 cm; Wt 50.0 kg
[~2022-04-16 02:37] MED LIST: ASCO500T3 PO; ASPI-630 PO; ASPI325T11 PO; ATEN25TA PO; BUSP10TA PO; CALC260T15 PO; CEFD300C PO; DULO30CA2 PO; DULO60CA7 PO; FAMO-63 PO; FERR325T14 PO; LEVO88TA4 PO; LORA0.5T PO; OXYC1TAB15 PO; OXYC1TAB22 PO; PANT20TA2 PO; QUET50TA5 PO; SIME62.5 PO; TRAZ-118 PO; TRIA1CAP3 PO; VIBE75TA PO
--- NOTE | 2022-04-16 04:07 | RAD ---
PQRS Compliance Statement: One or more of the following individualized dose reduction techniques were utilized for this examinat ion: 1. Automated exposure control 2. Adjustment of the mA and/or kV according to patient size 3. Use of iterative reconstruction technique CT abdomen/pelvis without contrast 04/16/2022 3:15 AM INDICATION: Nausea, vomiting and abdominal pain COMPARISON: CT abdomen/pelvis 04/29/2019 TECHNIQUE: Multiple axial CT images of the abdomen and pelvis were obtained without intravenous contr ast. Coronal and sagittal reformats are provided. FINDINGS: Large hiatal hernia. There is left basilar subsegmental atelectasis. Heart size within normal limits. Liver, spleen, bilateral adrenal glands, and gallbladder are normal in appearance. Mild atrophy of t he pancreas. Abdominal aorta is normal in course and caliber with moderate calcified atheromatous plaque. No patho logically enlarged lymph nodes in abdomen and pelvis. There is no free fluid or free intraperitoneal air. Umbilical hernia containing nondilated loop of small bowel. Supraumbilical ventral abdominal her micah measures 1.5 cm along the midline. Ventricular peritoneal shunt catheter terminates in the right lower pelvis. Small fluid collection identified within the right lower pelvis at the tip of the peritoneal catheter . Postoperative changes from anastomosis identified within the left lower abdomen. No bowel obstruction or inflammation. Appendix not definitively visualized. The kidneys are relatively symmetric in appearance. There is no suspicious renal mass within the limi tations of a noncontrast examination. There is no hydronephrosis. There are no calculi within the kid neys, ureters or urinary bladder. Urinary bladder is within normal limits given degree of distention. Evaluation of the left hemipelvis is limited by streak artifact from left total hip arthroplasty. Remote healed left inferior pubic ra mus fracture. Chronic compression fractures at L1 and L2. 75 percent height loss at L1 with retropuls ion resulting in mild spinal canal stenosis. IMPRESSION: 1. No acute abnormality identified within the abdomen and pelvis. Extent 2. Ventriculoperitoneal shunt catheter with small volume pelvic free fluid. 3. Umbilical hernia measuring 1.3 cm contains nondilated small bowel loop. 4. No bowel obstruction or inflammation. 5. Chronic compression deformities of L1 on L2. Electronically signed by: Crystal Martinez MD (04/16/2022 4:04 AM) [facility]
[2022-04-16 04:09] LABS: BASO # 0.1 x10^3/uL (0.0-0.2); BASO % 1 % (0-3); EOS # 0.1 x10^3/uL (0.0-0.7); EOS % 1 % (0-3); HEMATOCRIT 39.1 % (36.0-47.0); HEMOGLOBIN 12.9 g/dL (12.0-15.5); LYMPH # 1.2 x10^3/uL (1.0-4.8); LYMPH % 14 % (24-48); MEAN CORPUSCULAR HEMOGLOBIN 30 pg (25-35); MEAN CORPUSCULAR HGB CONC 33 g/dL (31-37); MEAN CORPUSCULAR VOLUME 90 fL (79-100); MONO # 0.7 x10^3/uL (0.0-1.1); MONO % 8 % (0-9); NEUT # 6.2 x10^3/uL (1.8-7.7); NEUT % 76 % (31-73); PLATELET COUNT 228 x10^3/uL (140-400); RED BLOOD COUNT 4.33 x10^6/uL (3.50-5.40); RED CELL DISTRIBUTION WIDTH 15.6 % (11.5-14.5); WHITE BLOOD COUNT 8.3 x10^3/uL (4.0-11.0)
[2022-04-16 04:20] LABS: CALCIUM 9.3 mg/dL (8.5-10.1); CREATININE 0.8 mg/dL (0.6-1.0); GFR 68.8; POTASSIUM 3.9 mmol/L (3.5-5.1)
[2022-04-16 04:28] LABS: ALBUMIN 3.4 g/dL (3.4-5.0); ALBUMIN/GLOBULIN RATIO 0.8 (1.0-1.7); TOTAL BILIRUBIN 0.4 mg/dL (0.2-1.0); TOTAL PROTEIN 7.6 g/dL (6.4-8.2)
[2022-04-16 04:32] LABS: BACTERIA,URINE MANY /HPF (0-FEW); RBC,URINE 0 /HPF (0-2); WBC,URINE TNTC /HPF (0-4); YEAST,URINE PRESENT /HPF
[2022-04-16] MEDS ORDERED: cefTRIAXone IV Push 1 GM VIAL. IVP ONE (04:45)
--- NOTE | 2022-04-16 05:02 | RAD ---
PQRS Compliance Statement: One or more of the following individualized dose reduction techniques were utilized for this examinat ion: 1. Automated exposure control 2. Adjustment of the mA and/or kV according to patient size 3. Use of iterative reconstruction technique CT head without contrast 04/16/2022 4:34 AM INDICATION: Shunt in place, vomiting COMPARISON: CT head 12/09/2021 TECHNIQUE: Multiple axial CT images of the head were obtained from skull base through the vertex with out intravenous contrast. FINDINGS: Head: Right parietal approach ventriculostomy catheter is identified with the distal tip terminating in the frontal horn of left lateral ventricle. There is moderate ventriculomegaly, stable from 12/09/2021. T here is encephalomalacia involving the right superior frontal gyrus. Ventricles, sulci and basal cisterns are within normal limits. There is no hydrocephalus. Pineda-white matter differentiation is normal. There is no acute intracranial hemorrhage. There is no mass, mass e ffect or midline shift. Posterior fossa is normal in appearance. Visualized portions of the orbits are normal with exception of bilateral lens replacement. Paranasal sinuses are well aerated. Mastoid air cells are well aerated. IMPRESSION: No acute intracranial hemorrhage. Right parietal approach ventriculostomy catheter is in similar position. Ventricles are similar morph ology. Electronically signed by: Crystal Martinez MD (04/16/2022 4:59 AM) [facility]
[2022-04-16] MEDS ORDERED: LIDOCAINE 1% Multi-Dose 20 ML VIAL. ONE (05:12)
--- NOTE | 2022-04-16 05:13 | PHYS DOC ---
Past Medical History Additional Past Medical Histor: nontraumatic intracerebral hemorrhage Past Surgical History: Other Additional Past Surgical Histo: cerebrospinal fluid drainage device placement Smoking Status: Unknown if ever smoked Alcohol Use: None General Adult EDM: Chief Complaint: NAUSEA/VOMITING/DIARRHEA HPI: HPI: Patient is a 81 year old female presents with an episode of vomiting. She possibly vomited twice 1 of which was slightly coffee-ground. This is all the information we have at this time. Patient is demented and cannot provide any further history. She arrives from a nursing facility. Per nursing staff here there is no fever. Review of Systems: Review of Systems: Cannot perform due to dementia Heart Score: C/O Chest Pain: No Risk Factors: Risk Factors: DM, Current or recent (<one month) smoker, HTN, HLP, family history of CAD, obesity. Risk Scores: Score 0 - 3: 2.5% MACE over next 6 weeks - Discharge Home Score 4 - 6: 20.3% MACE over next 6 weeks - Admit for Clinical Observation Score 7 - 10: 72.7% MACE over next 6 weeks - Early Invasive Strategies Current Medications: Current Medications Medications (Trade) Dose Ordered Sig/Brijesh Start Time Stop Time Status Last Admin Dose Admin Ceftriaxone Sodium (Rocephin) 1 gm 1X ONCE 04/16/22 04:45 04/16/22 04:46 DC Allergies: Allergies: Allergies Coded Allergies Type Severity Reaction Last Updated Verified Sulfa (Sulfonamide Antibiotics) Allergy Severe 12/12/21 Yes ciprofloxacin Allergy Intermediate 12/12/21 Yes metronidazole Allergy Intermediate 12/12/21 Yes nalbuphine Allergy Intermediate 12/12/21 Yes ondansetron Allergy Intermediate 12/12/21 Yes tiagabine Allergy Intermediate 12/12/21 Yes I S O L A T I O N *CONTACT* Allergy Unknown 04/29/19 Yes Physical Exam: PE: Constitutional: Well developed, well nourished, no acute distress, non-toxic appearance. [] HENT: Normocephalic, atraumatic, bilateral external ears normal, oropharynx moist, no oral exudates, nose normal. [] Eyes: PERRLA, EOMI, conjunctiva normal, no discharge. [] Neck: Normal range of motion, no tenderness, supple, no stridor. [] Cardiovascular:Heart rate regular rhythm, no murmur [] Lungs & Thorax: Bilateral breath sounds clear to auscultation [] Abdomen: Bowel sounds normal, soft, no tenderness, no masses, no pulsatile masses. [] Skin: Warm, dry, no erythema, no rash. [] Back: No tenderness, no CVA tenderness. [] Extremities: No tenderness, no cyanosis, no clubbing, ROM intact, no edema. [] Neurologic: Alert and opens her eyes spontaneously. This is known baseline Current Patient Data: Labs: Laboratory Tests Test 04/16/22 04:00 04/16/22 04:05 White Blood Count 8.3 x10^3/uL (4.0-11.0) Red Blood Count 4.33 x10^6/uL (3.50-5.40) Hemoglobin 12.9 g/dL (12.0-15.5) Hematocrit 39.1 % (36.0-47.0) Mean Corpuscular Volume 90 fL (79-100) Mean Corpuscular Hemoglobin 30 pg (25-35) Mean Corpuscular Hemoglobin Concent 33 g/dL (31-37) Red Cell Distribution Width 15.6 % (11.5-14.5) H Platelet Count 228 x10^3/uL (140-400) Neutrophils (%) (Auto) 76 % (31-73) H Lymphocytes (%) (Auto) 14 % (24-48) L Monocytes (%) (Auto) 8 % (0-9) Eosinophils (%) (Auto) 1 % (0-3) Basophils (%) (Auto) 1 % (0-3) Neutrophils # (Auto) 6.2 x10^3/uL (1.8-7.7) Lymphocytes # (Auto) 1.2 x10^3/uL (1.0-4.8) Monocytes # (Auto) 0.7 x10^3/uL (0.0-1.1) Eosinophils # (Auto) 0.1 x10^3/uL (0.0-0.7) Basophils # (Auto) 0.1 x10^3/uL (0.0-0.2) Sodium Level 141 mmol/L (136-145) Potassium Level 3.9 mmol/L (3.5-5.1) Chloride Level 106 mmol/L (98-107) Carbon Dioxide Level 27 mmol/L (21-32) Anion Gap 8 (6-14) Blood Urea Nitrogen 12 mg/dL (7-20) Creatinine 0.8 mg/dL (0.6-1.0) Estimated GFR (Cockcroft-Gault) 68.8 BUN/Creatinine Ratio 15 (6-20) Glucose Level 114 mg/dL (70-99) H Calcium Level 9.3 mg/dL (8.5-10.1) Total Bilirubin 0.4 mg/dL (0.2-1.0) Aspartate Amino Transferase (AST) 13 U/L (15-37) L Alanine Aminotransferase (ALT) 11 U/L (14-59) L Alkaline Phosphatase 111 U/L (46-116) Troponin I High Sensitivity 14 ng/L (4-50) Total Protein 7.6 g/dL (6.4-8.2) Albumin 3.4 g/dL (3.4-5.0) Albumin/Globulin Ratio 0.8 (1.0-1.7) L Lipase 70 U/L (73-393) L Urine Collection Type U cath Urine Color (Auto) Yellow Urine Turbidity Hazy Urine pH (Auto) 5.5 (<5.0-8.0) Urine Specific [employer] [place] 1.020 (1.000-1.030) Urine Protein (Auto) Negative mg/dL (Negative) Urine Glucose (Auto)(UA) Negative mg/dL (Negative) Urine Ketones (Auto) 10 mg/dL (Negative) Urine Blood (Auto) Negative (Negative) Urine Nitrite Negative (Negative) Urine Bilirubin (Auto) Negative (Negative) Urine Urobilinogen (Auto) Normal mg/dL (Normal) Urine Leukocyte Esterase (Auto) Large (Negative) Urine RBC 0 /HPF (0-2) Urine WBC Tntc /HPF (0-4) Urine Squamous Epithelial Cells Few /LPF Urine Bacteria Many /HPF (0-FEW) Urine Mucus Mod /LPF Urine Yeast Present /HPF Laboratory Tests 04/16/22 04:00 Laboratory Tests 04/16/22 04:00 Vital Signs: Vital Signs Date Time Temp Pulse Resp B/P (MAP) Pulse Ox O2 Delivery O2 Flow Rate FiO2 04/16/22 02:37 98.6 99 20 145/91 (109) 95 Room Air 98.6 EKG: EKG: [] Radiology/Procedures: Radiology/Procedures: [] Course & Med Decision Making: Course & Med Decision Making Patient is at her known baseline. No significant leukocytosis or fever. Given 1 dose of ceftriaxone in the emergency department and will be discharged on oral antibiotics back to nursing facility. Low threshold to return if she begins having a fever or increased vomiting and cannot tolerate p.o. intake. Dragon Disclaimer: Dragon Disclaimer: This electronic medical record was generated, in whole or in part, using a voice recognition dictation system. Departure Departure Impression: Primary Impression: Pyelonephritis Disposition: [facility] Condition: STABLE Referrals: PAU COSTELLO MD (PCP) Patient Instructions: Pyelonephritis, Adult Additional Instructions: Please have patient return if she cannot tolerate p.o. intake or spikes a fever. JOHN TSE MD April 16, 2022 05:13
[2022-04-16] MEDS ORDERED: cefTRIAXone IM 1 GM VIAL IM ONE (05:30)
[2022-04-16 06:09] VITALS: BP 127/57
--- NOTE | 2022-04-16 12:06 | EKG ---
[facility] [address] [place] [address] Test Date: 2022-04-16 Test Time: 03:11:53 Pat Name: ORVILLE KNAPP Department: Room: Gender: F Sewing Machine Operator: : 1940 Requested By: JOHN TSE Order Number: [id number] Reading MD: Baudilio Olvera Measurements Intervals [place] Rate: 87 P: 178 [place]: 160 QRS: -19 QRSD: 82 T: 74 QT: 368 QTc: 443 Interpretive Statements SINUS RHYTHM LEFTWARD AXIS MILD NON SPECIFIC ST CHANGES Electronically Signed On 04-18-2022 10:23:12 CDT by Baudilio Olvera
== END 2022-04-16 06:25 ==
LOC: ER 02:37
DX: N12 Tubulo-interstitial nephritis, not specified as acute or chronic (principal); F03.90 Unspecified dementia, unspecified severity, without behavioral disturbance, psychotic disturbance, mood disturbance, and anxiety; Z88.2 Allergy status to sulfonamides; Z88.1 Allergy status to other antibiotic agents; Z88.8 Allergy status to other drugs, medicaments and biological substances
CPT/HCPCS: 36415; 70450; 74176; 80053; 81001; 83690; 84484; 85025; 87077; 87086; 87186; 93005; 96372; 99285; J0696; P9612